=== PATIENT | female | born 1970 | race Caucasian/White ===

== ENCOUNTER 2017-03-26 15:02 | Emergency (ER) | payer OTHER ==
[2017-03-26 15:06] VITALS: BP 130/86; PULSE 98; TEMP 98.5; BMI 19.5
--- NOTE | 2017-03-26 15:06 | PDOC ---
History of Present Illness - General Chief Complaint: Ear Problem Stated Complaint: LT EAR INFECTION Time Seen by Provider: 03/26/17 15:06 History Source: Patient Exam Limitations: No Limitations - History of Present Illness Initial Comments: 03/26/17 15:46 Pt. is a 46 y/o female who presents to the ED c/o R ear pain. Pt. states her R ear started hurting three days ago. She states that she also had headaches, chills, and sore throat. Pt. states that this morning she noticed some "crusty discharge from her ear, feeling like she's underwater, and increasing pain". She now presents for evaluation. Denies, fevers, SOB, cough, n/v/d, Past History - Travel Traveled outside of the country in the last 30 days: No Close contact w/someone who was outside of country & ill: No - Past Medical History Allergies/Adverse Reactions: Allergies Allergy/AdvReac Type Severity Reaction Status Date / Time No Known Allergies Allergy Verified 03/26/17 15:03 Home Medications: Ambulatory Orders Methylprednisolone [Medrol Dose Cholo] 4 mg PO ASDIR #21 tablet 09/08/16 Sulfamethoxazole/Trimethoprim [Bactrim Ds -] 1 tab PO BID #20 tablet 09/08/16 Amoxicillin/Potassium Clav [Augmentin 875-125 Tablet] 1 each PO BID #20 tablet 03/26/17 Other medical history: SKIN ISSUE - Psycho/Social/Smoking Cessation Hx Anxiety: No Suicidal Ideation: No Smoking History: Current every day smoker Have you smoked in the past 12 months: Yes Number of Cigarettes Smoked Daily: 20 Information on smoking cessation initiated: Yes 'Breaking Loose' booklet given: 03/26/17 Hx Alcohol Use: No Drug/Substance Use Hx: No Substance Use Type: None Review of Systems - Review of Systems Able to Perform ROS?: Yes Is the patient limited Pakistani proficient: No Constitutional: Yes: Chills. No: Fever, Weakness HEENTM: Yes: Ear Pain, Ear Discharge, Throat Pain. No: Nose Congestion, Tinnitus, Nose Bleeding, Hearing Loss, Throat Swelling, Difficulty Swallowing Respiratory: No: Cough, Shortness of Breath Integumentary: No: Erythema, Pruritus, Rash Neurological: Yes: Headache. No: Numbness, Paresthesia, Weakness *Physical Exam - Vital Signs Last Vital Signs Temp Pulse Resp BP Pulse Ox 98.5 F 98 H 18 130/86 100 03/26/17 15:03 03/26/17 15:03 03/26/17 15:03 03/26/17 15:03 03/26/17 15:03 - Physical Exam General Appearance: Yes: Nourished, Appropriately Dressed. No: Apparent Distress HEENT: positive: EOMI, MATTHEW, Normal Voice, Tonsillar Erythema, TM Bulging (R TM bulging, non-perforated, L TM WNL), TM Erythema (R TM with erythema, L TM WNL). negative: Tonsillar Exudate, TM Dull Neck: positive: Trachea midline, Supple, Lymphadenopathy (R), Lymphadenopathy (L ). negative: Tender, Rigid Respiratory/Chest: positive: Lungs Clear, Normal Breath Sounds. negative: Chest Tender, Respiratory Distress, Accessory Muscle Use Cardiovascular: positive: Regular Rhythm, Regular Rate, S1, S2 (present). negative: Murmur (no rubs or gallops) Medical Decision Making - Medical Decision Making 03/26/17 15:56 Pt. is a 46 y/o female c/o ear pain for three days. Pt has an acute otitis media of the R TM. Bulging and erythma the TM present with out rupture. Pt is also c/o sore throat. Possible strep. Given the ear infection with sore throat, will treat with Augmentin. Pt. understands to take the full dose of the antibiotic and to follow up with her PCP. Will discharge home at this time. Pt understands all discharge instructions and all questions were answered. *DC/Admit/Observation/Transfer Diagnosis at time of Disposition: Acute otitis media Qualifiers: Otitis media type: suppurative Laterality: right Recurrence: not specified as recurrent Spontaneous tympanic membrane rupture: without spontaneous rupture Qualified Code(s): H66.001 - Acute suppurative otitis media without spontaneous rupture of ear drum, right ear - Discharge Dispostion Disposition: HOME Condition at time of disposition: Improved Admit: No - Prescriptions Prescriptions: Amoxicillin/Potassium Clav [Augmentin 875-125 Tablet] 1 each PO BID #20 tablet - Referrals Referrals: Christian Garrido [Primary Care Provider] - - Patient Instructions Printed Discharge Instructions: Middle Ear Infection Additional Instructions: You have an ear infection. You were prescribed antibiotics. Take the medication as prescribed and take the full dose of antibiotics, even if you are feeling better. Take this medication with food as it may irritate your stomach. Eating yogurt may also prevent irritation to your stomach. You may take Tylenol or Motrin as needed for your pain. Follow up with your primary care doctor in one week. Return to the ED if you have hearing loss, new fevers, worsening pain, or any changes in your symptoms. - Post Discharge Activity Work/School Note: Back to Work
[2017-03-26] MEDS ORDERED: IBUPROFEN 600 MG TABLET (FP) PO ONE ×2 (15:46→15:53)
== END 2017-03-26 16:08 | disposition home or self-care (01) ==
LOC: JERFT 15:02
DX: H66.001 Acute suppurative otitis media without spontaneous rupture of ear drum, right ear (principal)
CPT/HCPCS: 99281-25

== ENCOUNTER 2019-05-20 18:13 | Emergency (ER) | payer OTHER | END 2019-05-20 20:43 | disposition home or self-care (01) | LOC: JER 18:13 → JERFT 20:43 ==

== ENCOUNTER 2019-12-13 13:21 | Emergency (ER) | payer OTHER ==
[2019-12-13 13:44] VITALS: BMI 18.3
[2019-12-13] MEDS ORDERED: ACETAMINOPHEN 1000 MG/100 ML VIAL (NON FORMULARY) IVPB ONE (14:16)
[2019-12-13] MEDS ORDERED: SODIUM CHLORIDE 1,000 ML IV STA (14:17)
[2019-12-13] MEDS ORDERED: ACETAMINOPHEN INJECTION 100 ML IVPB ONE (14:34)
[2019-12-13 14:41] LABS: EPI CELLS 0.6 /HPF (0-5/HPF); HYALINE CASTS 1 /lpf (0-8); PH,URINE 5.5 (5.0-8.0); URINE APPEARANCE CLEAR; URINE BILIRUBIN NEGATIVE (NEGATIVE); URINE COLOR YELLOW; URINE GLUCOSE (UA) NEGATIVE (NEGATIVE); URINE KETONE NEGATIVE (NEGATIVE); URINE LEUK ESTERASE NEGATIVE (NEGATIVE); URINE NITRITE NEGATIVE (NEGATIVE); URINE PROTEIN NEGATIVE (NEGATIVE); URINE RBC 1 /hpf (0-4); URINE UROBILINOGEN 0.2 mg/dL (0.2-1.0); URINE WBC 0 /hpf (0-5)
[2019-12-13 14:56] LABS: EOS % 0.7 % (0-4.5); HEMATOCRIT 46.7 % (32.4-45.2); HEMOGLOBIN 16.3 GM/dL (10.7-15.3); LYMPH % 17.7 % (8-40); MCH 35.4 pg (25.7-33.7); MCHC 34.9 g/dl (32.0-36.0); MEAN CELL VOLUME 101.5 fl (80-96); MEAN PLT VOLUME 8.9 fl (7.5-11.1); MONO % 10.2 % (3.8-10.2); NEUT % 70.4 % (42.8-82.8); PLATELET COUNT 169 K/MM3 (134-434); RDW 13.2 % (11.6-15.6); WHITE BLOOD COUNT 7.6 K/mm3 (4.0-10.0)
--- NOTE | 2019-12-13 15:03 | PDOC ---
History of Present Illness - General Chief Complaint: Pain Stated Complaint: ABD PAIN Time Seen by Provider: 12/13/19 13:58 History Source: Patient Exam Limitations: No Limitations - History of Present Illness Travel History: No Initial Comments: 12/13/19 14:58 49-year-old female presents to ED with complaints of abdominal cramping for the past 2 days with intermittent brown watery stool . Patient states was diagnosed with the flu last week and was taking Tamiflu which she stopped taking on day 4 due to abdominal pain. Patient states symptoms of the flu have resolved which she initially had headache, fever, cough and myalgia. Patient denies constipation, nausea or dysuria. Patient states is currently menstruating but denies similar cramping with menstrual cycle Timing/Duration: reports: intermittent Quality: reports: moderate, cramping Abdominal Pain Onset Location: reports: periumbilical Pain Radiation: reports: no radiation Aggravating Factors: improves with: None Alleviating Factors: improves with: None Past History - Travel Traveled outside of the country in the last 30 days: No Close contact w/someone who was outside of country & ill: No - Past Medical History Allergies/Adverse Reactions: Allergies Allergy/AdvReac Type Severity Reaction Status Date / Time No Known Allergies Allergy Verified 12/13/19 13:44 Home Medications: Ambulatory Orders Diphenhydramine [Benadryl Capsule -] 50 mg PO TID #20 capsule 05/20/19 Ibuprofen 400 mg PO TID PRN 05/22/19 Valacyclovir HCl [Valtrex -] 1,000 mg PO TID 7 Days #42 tablet 05/23/19 Anemia: No Asthma: No COPD: No - Immunization History Immunization Up to Date: No - Psycho Social/Smoking Cessation Hx Smoking History: Current every day smoker Have you smoked in the past 12 months: Yes Number of Cigarettes Smoked Daily: 20 Cigars Per Day: 20 Information on smoking cessation initiated: No 'Breaking Loose' booklet given: 03/26/17 Hx Alcohol Use: No Drug/Substance Use Hx: No Substance Use Type: None Patient Lives Alone: No Lives with/in: spouse/SO Review of Systems - Review of Systems Able to Perform ROS?: Yes Is the patient limited Barb[place] proficient: No Constitutional: No: Symptoms Reported HEENTM: No: Symptoms Reported Respiratory: No: Symptoms reported Cardiac (ROS): No: Symptoms Reported ABD/GI: Yes: Diarrhea, Abdominal cramping : No: Symptoms Reported Musculoskeletal: No: Symptoms Reported Integumentary: No: Symptoms Reported Neurological: No: Symptoms reported Endocrine: No: Symptoms Reported Hematologic/Lymphatic: No: Symptoms Reported *Physical Exam - Vital Signs Last Vital Signs Temp Pulse Resp BP Pulse Ox 98.0 F 93 H 16 118/68 99 12/13/19 13:35 12/13/19 13:35 12/13/19 13:35 12/13/19 13:35 12/13/19 13:35 - Physical Exam General Appearance: Yes: Nourished, Appropriately Dressed. No: Apparent Distress HEENT: negative: Pale Conjunctivae Neck: positive: Supple Respiratory/Chest: positive: Lungs Clear, Normal Breath Sounds. negative: Respiratory Distress, Accessory Muscle Use Cardiovascular: positive: Regular Rhythm, Regular Rate. negative: Murmur Gastrointestinal/Abdominal: positive: Normal Bowel Sounds, Soft, Tenderness ( Periumbilical). negative: Guarding, Rebound Musculoskeletal: negative: CVA Tenderness Extremity: positive: Normal Inspection Integumentary: positive: Normal Color, Warm, Moist Neurologic: positive: Motor Strength 5/5 (Ambulatory) ED Treatment Course - LABORATORY CBC & Chemistry Diagram: 12/13/19 14:44 12/13/19 14:44 - ADDITIONAL ORDERS Additional order review: Laboratory Results 12/13/19 14:25 Urine Color Yellow Urine Appearance Clear Urine pH 5.5 Ur Specific [place] 1.006 L Urine Protein Negative Urine Glucose (UA) Negative Urine Ketones Negative Urine Blood 1+ H Urine Nitrite Negative Urine Bilirubin Negative Urine Urobilinogen 0.2 Ur Leukocyte Esterase Negative Urine WBC (Auto) 0 Urine RBC (Auto) 1 Urine Casts (Auto) 1 U Epithel Cells (Auto) 0.6 Urine Bacteria (Auto) 1.0 - Medications Given in the ED: ED Medications Discontinued Medications Generic Name Dose Route Start Last Admin Trade Name Freq PRN Reason Stop Dose Admin Acetaminophen 1,000 mg 12/13/19 14:16 12/13/19 14:48 Ofirmev Injection - IVPB 12/13/19 14:17 1,000 mg ONCE ONE Administration Medical Decision Making - Medical Decision Making . 12/13/19 15:04 Chief complaint: Abdominal pain with diarrhea for the past 2 days. Patient states has been on Tamiflu for the past few days but did not take the last 2 tablets due to the above symptoms patient also states intermittent brown watery stool. Exam: Vital signs stable periumbilical tenderness otherwise normal physical exam. Plan: Urine, labs IV fluids, IV Tylenol 12/13/19 15:54 Laboratory Tests 12/13/19 12/13/19 12/13/19 14:25 14:44 14:44 WBC 7.6 Hgb 16.3 H Hct 46.7 H Absolute Neuts (auto) 5.4 Sodium 136 Potassium 4.1 Chloride 105 Carbon Dioxide 25 Anion Gap 6 L BUN 6.0 L Creatinine 0.7 Random Glucose 92 Calcium 8.6 Magnesium 2.0 Total Bilirubin 0.3 AST 35 ALT 35 Alkaline Phosphatase 100 Total Protein 7.3 Albumin 3.8 Ur Specific [place] 1.006 L Urine Blood 1+ H Urine Bilirubin Negative Ur Leukocyte Esterase Negative Urine WBC (Auto) 0 Urine RBC (Auto) 1 She states feeling better. Patient has had no episodes of diarrhea here. Patient will be discharged home with Imodium and recommendations to follow bananas rice and apples Tea diet Discharge - Discharge Information Problems reviewed: Yes Clinical Impression/Diagnosis: Diarrhea Condition: Improved Disposition: HOME - Follow up/Referral Referrals: Purvi Mesa MD [Primary Care Provider] - - Patient Discharge Instructions Patient Printed Discharge Instructions: DI for Diarrhea and Traveler's Diarrhea -- Adult Additional Instructions: I recommend taking Imodium for the diarrhea and follow bananas rice and apples Tea diet to help bind the stool - Post Discharge Activity
[2019-12-13 15:50] LABS: ALBUMIN 3.8 g/dl (3.4-5.0); BILIRUBIN,TOTAL 0.3 mg/dL (0.2-1); CALCIUM 8.6 mg/dL (8.5-10.1); CREATININE 0.7 mg/dL (0.55-1.3); POTASSIUM 4.1 mmol/L (3.5-5.1); TOT PROT 7.3 g/dl (6.4-8.2)
[2019-12-13 17:20] VITALS: BP 120/70; PULSE 89; TEMP 98.4
== END 2019-12-13 16:30 | disposition home or self-care (01) ==
LOC: JER 13:21 → SUPCPDRO 13:21 → JER 16:30
PROC: 3E033NZ Introduction of Analgesics, Hypnotics, Sedatives into Peripheral Vein, Percutaneous Approach (ICD-10-PCS; principal; 2019-12-13)
DX: R19.7 Diarrhea, unspecified (principal); F17.210 Nicotine dependence, cigarettes, uncomplicated
CPT/HCPCS: 36415; 80053; 81003; 83735; 85025; 87086; 96374; 99284-25; J0131; J7030

== ENCOUNTER 2023-07-01 11:54 | Emergency (ER) | payer OTHER ==
[2023-07-01 11:58] VITALS: BP 136/90; PULSE 101; RESP 18; TEMP 98.7; BMI 22.4
[2023-07-01] MEDS ORDERED: predniSONE 20 MG TABLET (UD) PO ONE (13:00)
[2023-07-01] MEDS ORDERED: ACETAMINOPHEN 325 MG TABLET (FP) PO ONE (13:00)
[2023-07-01] MEDS ORDERED: CEPHALEXIN MONOHYDRATE 500 MG CAPSULE (UD) PO ONE (13:01)
[2023-07-01] MEDS ORDERED: CEPHALEXIN MONOHYDRATE 500 MG CAPSULE (UD) ONE (13:02)
[2023-07-01] MEDS ORDERED: predniSONE 20 MG TABLET (UD) ONE (13:02)
[2023-07-01] MEDS ORDERED: ACETAMINOPHEN 325 MG TABLET (FP) ONE (13:02)
== END 2023-07-01 13:07 | disposition home or self-care (01) ==
LOC: JERFT 11:54 → JER 11:54 → JERFT 13:07
DX: S90.862A Insect bite (nonvenomous), left foot, initial encounter (principal); R22.42 Localized swelling, mass and lump, left lower limb; W57.XXXA Bitten or stung by nonvenomous insect and other nonvenomous arthropods, initial encounter
CPT/HCPCS: 99283-25

== ENCOUNTER 2023-07-12 07:17 | Emergency (ER) | payer OTHER ==
[2023-07-12 07:25] VITALS: BP 132/89; PULSE 92; RESP 18; TEMP 98.1; BMI 22.4
[2023-07-12] MEDS ORDERED: IBUPROFEN 400 MG TABLET (FP) PO ONE ×2 (08:16→08:48)
[2023-07-12] MEDS ORDERED: predniSONE 20 MG TABLET (UD) PO ONE (08:16)
[2023-07-12] MEDS ORDERED: predniSONE 20 MG TABLET (UD) ONE (08:48)
== END 2023-07-12 09:15 | disposition home or self-care (01) ==
LOC: JERFT 07:17 → JER 07:17 → JERFT 09:15
DX: S60.562A Insect bite (nonvenomous) of left hand, initial encounter (principal); S00.261A Insect bite (nonvenomous) of right eyelid and periocular area, initial encounter; W57.XXXA Bitten or stung by nonvenomous insect and other nonvenomous arthropods, initial encounter
CPT/HCPCS: 99283-25